=== PATIENT | female | born 1985 | race Two or more races ===

== ENCOUNTER → 2022-01-11 | Outpatient (CLI) | payer BC ==
[~2022-01-11] MED LIST: EXCEDRIN MIGRA1 EACH PO; ULTRAM50 MG PO
== END ==
LOC: LAB 10:10
DX: Z32.00 Encounter for pregnancy test, result unknown (principal)
CPT/HCPCS: 84702

== ENCOUNTER → 2022-01-16 | Outpatient (CLI) | payer BC | LOC: LAB 12:48 | DX: Z13.29 Encounter for screening for other suspected endocrine disorder (principal) | CPT/HCPCS: 36415; 84439; 84443; 84702 ==

== ENCOUNTER → 2022-01-23 | Outpatient (CLI) | payer BC | LOC: LAB 09:44 | DX: Z13.29 Encounter for screening for other suspected endocrine disorder (principal); Z32.01 Encounter for pregnancy test, result positive | CPT/HCPCS: 36415; 84439; 84443; 84702 ==